=== PATIENT | female | born 1985 | race Caucasian/White ===

== ENCOUNTER 2020-03-10 06:47 | Day surgery (SDC) | payer BC ==
[2020-03-06 14:59] VITALS: BMI 25.0
[2020-03-10] MEDS ORDERED: PROPOFOL 20 ML ONE ×2 (08:10)
[2020-03-10 09:18] VITALS: BP 100/69; PULSE 76; TEMP 98.2
--- NOTE | 2020-03-13 17:18 | PATH ---
Surgical Pathology Report Patient Name: ARYA GALAVIZ [facility]. Rec. #: [id number] /Age/Gender: 1985 (Age: 35) / F Account: [id number] Location: [facility] AMBUL[facility]ORY Taken: 03/10/2020 Received: 03/10/2020 Reported: 03/13/2020 Physicians: Rayshawn Matamoros M.D. Specimen(s) Received A: ANTRUM B: BODY OF STOMACH C: DISTAL ESOPHAGUS Clinical History Gastritis,GERD. Surveillance for family history (colon). Postoperative diagnosis: Same as preop, hemorrhoids Final Diagnosis A. STOMACH, ANTRUM, BIOPSY: GASTRIC ANTRAL MUCOSA WITH MILD CHRONIC GASTRITIS. IMMUNOHISTOCHEMICAL STAIN FOR H. PYLORI IS NEGATIVE. B. STOMACH, BODY, BIOPSY: GASTRIC BODY MUCOSA WITH MILD CHRONIC GASTRITIS. IMMUNOHISTOCHEMICAL STAIN FOR H. PYLORI IS NEGATIVE. C. DISTAL ESOPHAGUS, BIOPSY: SQUAMOUS MUCOSA WITH CHANGES OF MILD REFLUX TYPE ESOPHAGITIS. Positive and negative controls (internal if applicable) show appropriate results. Electronically Signed Theodora Mcintosh M.D. Gross Description A. Received in formalin, labeled "antrum" are 2 ingram, irregular portions of soft tissue measuring 0.1 cm and 0.3 cm. in greatest dimension. The specimens are submitted in toto in one cassette. B. Received in formalin, labeled "body of stomach" are 2 ingram, irregular portions of soft tissue measuring 0.1 cm and 0.3 cm. in greatest dimension. The specimens are submitted in toto in one cassette. C. Received in formalin, labeled "distal esophagus" are 2 ingram, irregular portions of soft tissue each measuring 0.2 cm. in greatest dimension. The specimens are submitted in toto in one cassette. AE/03/10/2020 ebram/03/10/2020
== END 2020-03-10 09:30 | disposition home or self-care (01) ==
LOC: FASU 06:47
PROVIDERS: ATTEND Internal Medicine Gastroenterology
PROC: 0DB38ZX Excision of Lower Esophagus, Via Natural or Artificial Opening Endoscopic, Diagnostic (ICD-10-PCS; 2020-03-10)
PROC: 0DB68ZX Excision of Stomach, Via Natural or Artificial Opening Endoscopic, Diagnostic (ICD-10-PCS; 2020-03-10)
PROC: 0DJD8ZZ Inspection of Lower Intestinal Tract, Via Natural or Artificial Opening Endoscopic (ICD-10-PCS; principal; 2020-03-10 08:20)
DX: Z83.71 Family history of colonic polyps (principal); K64.8 Other hemorrhoids; Z87.11 Personal history of peptic ulcer disease; K29.50 Unspecified chronic gastritis without bleeding; K21.9 Gastro-esophageal reflux disease without esophagitis; K21.0 Gastro-esophageal reflux disease with esophagitis
CPT/HCPCS: 84703; 88305-TC; 88342-TC